=== PATIENT | female | born 1990 | race Caucasian/White ===

== ENCOUNTER 2023-11-24 05:37 | Emergency (ER) | payer BC, SELFPAY ==
[2023-11-24 05:47] VITALS: BP 107/74; PULSE 122; RESP 20; TEMP 37.8; BMI 25.0
[2023-11-24 06:39] LABS: Basophils Percent Auto 0.2 % (0-2); Eosinophils Percent Auto 0.1 % (0-4); Hematocrit 37.5 % (37.0-47.0); Hemoglobin 12.6 g/dl (12.0-16.0); Imm Gran Abs Auto 0.12 X10*3/uL (0.00-0.03); Imm Gran Pct Auto 0.7 % (0.0-0.4); Lymphocytes Absolute Auto 0.8 X10*3/uL (1.2-4.9); Lymphocytes Percent Auto 4.3 % (20-40); MANUAL DIFF FLAG NO; Mean Corpuscular HGB Conc 33.6 g/dl (31.0-35.0); Mean Corpuscular Volume 89.3 fL (80.0-98.0); Mean Platelet Volume 10.8 fL (9.4-12.3); Monocytes Absolute Auto 1.1 X10*3/uL (0.1-1.2); Monocytes Percent Auto 6.3 % (2-11); Neutrophils Percent Auto 88.4 % (45-73); Platelet Count 179 X10*3/uL (160-400); Red Cell Distribution Width 12.7 % (11.0-16.0); White Blood Count 18.1 X10*3/uL (4.8-10.8)
[2023-11-24 06:41] LABS: IDNOW Serial# 08D9AD1C; Strep A Nucleic Acid Positive (Negative)
[2023-11-24 06:54] LABS: COVID-19 Test Negative (Negative); IDNOW Serial# 152EDE1D
--- NOTE | 2023-11-24 06:54 | PC.NURSE ---
pt c/o of generalized aches and pains, c/o of throat, ears and low back hurting her, hot pack given for low back
[2023-11-24 06:55] LABS: Alanine Aminotransferase 74 U/L (0-31); Albumin Level 3.9 g/dL (3.5-5.0); Alkaline Phosphatase 62 U/L (39-117); Anion Gap 12 (12-20); Aspartate Amino Transferase 84 U/L (5-31); Bilirubin Total 0.8 mg/dL (0.0-1.0); Blood Urea Nitrogen 6 mg/dL (9-16); Calcium 8.9 mg/dL (8.4-10.2); Carbon Dioxide 23 mmol/L (22-29); Chloride 109 mmol/L (96-108); Creatinine Clr Calc Pharmacy 119.3; Estimated Glomerular Filt Rate > 60; Glucose Random 114 mg/dL (60-115); Potassium 3.5 mmol/L (3.3-5.1); Sodium 140 mmol/L (135-145); Total Protein 6.8 g/dL (6.5-8.0)
--- NOTE | 2023-11-24 06:57 | PC.NURSE ---
report given to May FIERRO
--- NOTE | 2023-11-24 07:13 | ED_ITS ---
HPI - General Adult General Chief complaint: General Medical Stated complaint: lower back pain Time Seen by Provider: 11/24/23 07:13 Source: patient Mode of arrival: ambulatory Limitations: no limitations History of Present Illness ED Provider: Roslyn BARKLEY HPI narrative: This is a 33-year-old female presenting to the emergency department 2 days of sore throat, fatigue, malaise, myalgia, nausea, nasal congestion, right-sided lower back pain (atraumatic, no saddle anesthesias no weakness) . Patient reports she has just been feeling overall unwell, she has been taking ibuprofen and DayQuil with little to no relief of symptoms. No known sick contacts. Patient denies urinary frequency, urgency, chest pain, shortness of breath, changes in voice, vomiting, diarrhea, abdominal pain, neck pain, vision changes, dizziness, weakness, saddle anesthesias, difficulties with ambulation. Related Data Previous Rx's ?Medication ?Instructions ?Recorded amoxicillin 875 mg-potassium 1 tab PO BID 7 days #14 tabs 11/24/23 clavulanate 125 mg tablet lidocaine 5 % topical patch 1 patch topical DAILY PRN pain #15 11/24/23 ea prednisone 20 mg tablet 20 mg PO DAILY 5 days #5 tabs 11/24/23 Allergies Allergy/AdvReac Type Severity Reaction Status Date / Time No Known Allergies Allergy Verified 11/24/23 05:47 Review of Systems 2 Review of Systems: Yes all other systems are reviewed and are negative FORMERLY [facility], [facility] Past Medical History Attestation statement: The following information was validated with the patient. Source: old records reviewed and nursing notes reviewed Social History Social History Smoked in Last 30 Days: No Substance Use Type: Marijuana Advance Directives: No Do you have a plan to hurt others: No Plan Physical Exam ED Vital Signs: Vital Signs - 24 hr 11/24/23 05:47 11/24/23 08:33 Temperature 100.1 F 99.1 F Pulse Rate 122 H 109 H Respiratory Rate 20 17 Blood Pressure 107/74 101/67 Pulse Oximetry 98 Oxygen Delivery Method Room Air Room Air BMI result Body Mass Index 25.0 Low-grade fever, tachycardia. Appearance: Alert.? Oriented X3.? No acute distress.? Head: Normocephalic, atraumatic, no step-offs or deformities Eyes: Pupils equal, round and reactive to light.? ENT: Pharynx normal.? Neck: Normal inspection.? Neck supple.? CVS: Normal heart rate and rhythm.? Pulses normal.? Respiratory: No respiratory distress.? Breath sounds normal.? Abdomen: Soft and nontender.? Skin: Skin warm and dry.? Normal skin color.? Normal skin turgor.? Extremities: No lower extremity edema.? No calf ttp. 5/5 strength to bilateral upper and lower extremities Back: No midline tenderness, no C-spine tenderness, full range of motion, no CVA tenderness bilaterally Neuro: Oriented X 3.? No motor deficit.? No sensory deficit. CN 2-12 intact Course Reevaluation(s) Reevaluation #1: Patient's CBC with leukocytosis and left shift likely secondary to strep pharyngitis or viral illness, chemistry no acute findings needing intervention, mild bump in transaminases likely secondary to viral illness or strep throat. Serology showing positive strep test. UA still pending. Will give Tylenol as patient has a low-grade fever. Tachycardia is likely secondary to low-grade fever. Time: 07:16 Reevaluation #2: UA without infection. Will discharge patient home with Augmentin, prednisone. Educated patient on diagnosis and treatment plan, answered all question, patient verbalizes understanding. At this time patient will be discharged home, advised to return with new or worsening symptoms. Educated on worrisome signs and symptoms and when to return. At this time I feel comfortable discharge home. Time: 08:41 Medications Administered Discontinued Medications Generic Name Dose Route Start Last Admin Trade Name Stacia PRN Reason Stop Dose Admin Acetaminophen 650 mg 11/24/23 07:13 11/24/23 08:31 Acetaminophen 325 Mg Tablet PO 11/24/23 07:14 650 mg ONCE ONE Administration Medical Decision Making Medical Decision Making MDM Narrative: 33-year-old female presents with viral illness and right-sided back ongoing for the past 2 days Physical History and physical exam concerning for viral illness versus strep throat. No signs of threat to airway, epidural abscess, epiglottitis, respiratory distress, cauda equina, cord compression, epidural abscess, pyelo. I do not suspect UTI at this time however will rule out. Will also rule out metabolic derangements. No signs of intra-abdominal etiologies. Plan viral testing, urine, basic labs Differential Diagnosis Differential Diagnoses: The differential diagnosis associated with the presentation includes History and physical exam concerning for viral illness versus strep throat. No signs of threat to airway, epidural abscess, epiglottitis, respiratory distress, cauda equina, cord compression, epidural abscess, pyelo. I do not suspect UTI at this time however will rule out. Will also rule out metabolic derangements. No signs of intra-abdominal etiologies. Admission/Observation Consideration of admission/observation: Escalation of care including admission/observation considered Possible Lab Data MDM Lab Attestation statement: I reviewed the patient's lab results. 11/24/23 06:33 11/24/23 06:33 Labs: Lab Results 11/24/23 11/24/23 Range/Units 06:33 08:28 WBC 18.1 H (4.8-10.8) X10*3/uL RBC 4.20 (4.20-5.50) X10*6/uL Hgb 12.6 (12.0-16.0) g/dl Hct 37.5 (37.0-47.0) % MCV 89.3 (80.0-98.0) fL MCH 30.0 (27.0-33.0) pg MCHC 33.6 (31.0-35.0) g/dl RDW 12.7 (11.0-16.0) % Plt Count 179 (160-400) X10*3/uL MPV 10.8 (9.4-12.3) fL Immature Gran % (Auto) 0.7 H (0.0-0.4) % Neut % (Auto) 88.4 H (45-73) % Lymph % (Auto) 4.3 L (20-40) % Gem % (Auto) 6.3 (2-11) % Eos % (Auto) 0.1 (0-4) % Baso % (Auto) 0.2 (0-2) % Lymph # (Auto) 0.8 L (1.2-4.9) X10*3/uL Gem # (Auto) 1.1 (0.1-1.2) X10*3/uL Eos # (Auto) 0.0 (0.0-0.4) X10*3/uL Baso # (Auto) 0.0 (0.0-0.2) X10*3/uL Abs Immat Gran (auto) 0.12 H (0.00-0.03) X10*3/uL Absolute Neuts (auto) 16.0 H (2.0-8.3) x10*3/uL Absolute Nucleated RBC 0.000 (0.0-0.012) X10*3/uL Nucleated RBC % (auto) 0.0 (0.0-0.2) /100WBC Sodium 140 (135-145) mmol/L Potassium 3.5 (3.3-5.1) mmol/L Chloride 109 H (96-108) mmol/L Carbon Dioxide 23 (22-29) mmol/L Anion Gap 12 (12-20) BUN 6 L (9-16) mg/dL Creatinine 0.64 (0.5-1.4) mg/dL Estim Creat Clear Calc 119.3 Estimated GFR > 60 Random Glucose 114 (60-115) mg/dL Calcium 8.9 (8.4-10.2) mg/dL Total Bilirubin 0.8 (0.0-1.0) mg/dL AST 84 H (5-31) U/L ALT 74 H (0-31) U/L Alkaline Phosphatase 62 (39-117) U/L Total Protein 6.8 (6.5-8.0) g/dL Albumin 3.9 (3.5-5.0) g/dL Urine Color Yellow Urine Appearance Clear Urine pH 7.0 (5.0-9.0) Ur Specific [place] 1.010 (1.005-1.025) Urine Protein Trace (Neg-Trace) mg/dL Urine Glucose (UA) Negative (Negative) mg/dL Urine Ketones Trace (Negative) mg/dL Urine Blood Negative (Negative) Urine Nitrite Negative (Negative) Ur Leukocyte Esterase Trace H (Negative) COVID-19 (KEL) Negative (Negative) COVID-19 Clin Com See Note S. pyogenes GrpA CHEYANNE Positive A (Negative) Prescription Management I considered prescription management with: Antibiotic Critical Care Time Critical Care Time Critical Care Time: No Discharge Plan Discharge Clinical Impression: Strep pharyngitis, Lower back pain Patient Disposition: Home, Self-Care Instructions: Strep Throat (ED), Back Pain (ED) Additional Instructions: Take your medications as prescribed. If you were prescribed antibiotics today, it is important that you take your medication to their entirety, do not skip any doses, do not finish them early. Follow-up with your primary care provider this week. Return to the emergency department with new or worsening symptoms. Such as fevers, chills, chest pain, shortness of breath, nausea, vomiting, dizziness, headache, vision changes, lethargy In case of emergency call 911 For fevers and muscle aches you can take ibuprofen every 6 hours, Tylenol every 4 hours as needed . Do not exceed maximum daily dose as listed on packaging. Prescriptions: New prednisone 20 mg tablet 20 mg PO DAILY 5 Days Qty: 5 0RF lidocaine 5 % adhesive patch,medicated 1 patch topical DAILY PRN (Reason: pain) Qty: 15 0RF Rx Instructions: leave on most painful area for up to 12 hrs amoxicillin-pot clavulanate 875-125 mg tablet 1 tab PO BID 7 Days Qty: 14 0RF Referrals: Physician,Unknown J [Primary Care Provider] - 2 days Print Language: Beninese
[2023-11-24] MEDS: Acetaminophen 325 MG TABLET 650 MG PO (08:31)
[2023-11-24 08:33] VITALS: BP 101/67; PULSE 109; RESP 17; TEMP 37.3; O2SAT 98
[2023-11-24 08:36] LABS: Appearance Urine Clear; Color Urine Yellow; Glucose Urine UA Negative (Negative); Leukocyte Esterase Urine Trace (Negative); Nitrite Urine Negative (Negative); UMIC TRIGGER UACC YES; Urine Blood Negative (Negative); Urine Ketones Trace mg/dL (Negative); Urine Protein Trace mg/dL (Neg-Trace)
[2023-11-24 08:49] LABS: Bacteria Urine None Seen (None Seen); Hyaline Casts Urine 0-2 /LPF (0-2); RBC Urine 0-2 /HPF (0-2); WBC Urine 0-5 /HPF (0-5)
[2023-11-24 09:20] VITALS: BP 101/67; PULSE 109; RESP 17; TEMP 37.3; O2SAT 98
== END 2023-11-24 09:21 | disposition home or self-care (01) ==
PROVIDERS: Emergency Provider Emergency Medicine
DX: J02.0 Streptococcal pharyngitis (principal); M54.50 Low back pain, unspecified; J02.9 Acute pharyngitis, unspecified; R11.2 Nausea with vomiting, unspecified; Z11.52 Encounter for screening for COVID-19; Z79.899 Other long term (current) drug therapy
CPT/HCPCS: 36415; 80053; 81001; 85025; 87635; 87651; 99284